=== PATIENT | male | born 1970 | race Caucasian/White ===

== ENCOUNTER 2021-01-21 10:59 | Inpatient (IN) | payer OTHER ==
[2021-01-21] MEDS ORDERED: ACETAMINOPHEN 325 MG TABLET (FP) PO PRN ×2 (12:22)
[2021-01-21] MEDS ORDERED: NICOTINE 10 MG CARTRIDGE (INHALER) IH PRN (12:22)
[2021-01-21] MEDS ORDERED: BISMUTH SUBSALICYLATE 524 MG/30 ML PO PRN (12:22)
[2021-01-21] MEDS ORDERED: cloNIDine HCL 0.1 MG TABLET PO PRN (12:22)
[2021-01-21] MEDS ORDERED: MAGNESIUM CITRATE 300 ML BOTTLE PO PRN (12:22)
[2021-01-21] MEDS ORDERED: MAGNESIUM HYDROX 2400MG/30ML ORAL SUSPENSION 30 ML CUP PO PRN (12:22)
[2021-01-21] MEDS ORDERED: ONDANSETRON *ODT* 4 MG TABLET SL PRN (12:22)
[2021-01-21] MEDS ORDERED: MAG HYDROX/AL HYDROX/SIMETH 30 ML UNIT-DOSE CUP PO PRN (12:22)
[2021-01-21] MEDS ORDERED: IBUPROFEN 400 MG TABLET (FP) PO PRN (12:22)
[2021-01-21] MEDS ORDERED: MENTHOL/PHENOL 1 EACH UD MM PRN (12:22)
[2021-01-21 12:34] VITALS: BMI 22.8
[2021-01-21] MEDS ORDERED: methaDONE HCL 10 MG TABLET (FOR DETOX USE ONLY) PO ONE (14:00)
[2021-01-21] MEDS: NICOTINE 14 MG/24 HOURS TOPICAL PATCH TD SCH (15:27)
[2021-01-21] MEDS: hydrOXYzine PAMOATE 25 MG CAPSULE (FP) PO SCH ×3 (15:30→22:23)
[2021-01-21] MEDS: PRENATAL VITAMINS W/ FOLIC ACID TABLET (FP) PO SCH (15:30)
[2021-01-21 17:05] LABS: HEMATOCRIT 38.1 % (35.4-49); HEMOGLOBIN 12.9 GM/dL (11.7-16.9); MCH 29.7 pg (25.7-33.7); MCHC 33.9 g/dl (32.0-35.9); MEAN CELL VOLUME 87.4 fl (80-96); MEAN PLT VOLUME 10.6 fl (7.5-11.1); PLATELET COUNT 178 10^3/uL (134-434); RBC 4.36 M/mm3 (4.00-5.60); RDW 15.1 % (11.9-15.9)
[2021-01-21 17:09] LABS: CALCIUM 9.2 mg/dL (8.5-10.1)
[2021-01-21 17:10] LABS: ALBUMIN 3.9 g/dl (3.4-5.0); BLOOD UREA NITROGEN 13.2 mg/dL (7-18)
[2021-01-21 17:13] LABS: CREATININE 1.1 mg/dL (0.55-1.3)
[2021-01-21 17:14] LABS: BILIRUBIN,TOTAL 0.4 mg/dL (0.2-1)
[2021-01-21 17:15] LABS: TOT PROT 6.7 g/dl (6.4-8.2)
[2021-01-21] MEDS: METHOCARBAMOL 500 MG TABLET PO PRN (18:14)
[2021-01-21] MEDS: MELATONIN 5 MG TABLETS PO SCH (22:23)
[2021-01-21] MEDS: THIAMINE HCL 100 MG TABLET (FP) PO SCH (22:23)
[2021-01-22] MEDS: hydrOXYzine PAMOATE 25 MG CAPSULE (FP) PO SCH ×5 (06:28→22:15)
[2021-01-22] MEDS: METHOCARBAMOL 500 MG TABLET PO PRN (07:57)
[2021-01-22] MEDS ORDERED: methaDONE HCL 10 MG TABLET (FOR DETOX USE ONLY) ONE (09:49)
[2021-01-22] MEDS: PRENATAL VITAMINS W/ FOLIC ACID TABLET (FP) PO SCH (10:09)
[2021-01-22] MEDS: NICOTINE 14 MG/24 HOURS TOPICAL PATCH TD SCH (10:11)
[2021-01-22] MEDS: diazePAM 5 MG TABLET PO SCH ×2 (18:14→22:16)
[2021-01-22] MEDS: MELATONIN 5 MG TABLETS PO SCH (22:16)
[2021-01-22] MEDS: THIAMINE HCL 100 MG TABLET (FP) PO SCH (22:16)
[2021-01-23] MEDS: diazePAM 5 MG TABLET PO SCH ×5 (06:47→22:25)
[2021-01-23] MEDS: hydrOXYzine PAMOATE 25 MG CAPSULE (FP) PO SCH ×6 (06:47→22:25)
[2021-01-23] MEDS ORDERED: methaDONE HCL 10 MG TABLET (FOR DETOX USE ONLY) PO ONE (10:00)
[2021-01-23] MEDS: METHOCARBAMOL 500 MG TABLET PO PRN ×2 (10:08→17:42)
[2021-01-23] MEDS: PRENATAL VITAMINS W/ FOLIC ACID TABLET (FP) PO SCH (10:09)
[2021-01-23] MEDS: NICOTINE 14 MG/24 HOURS TOPICAL PATCH TD SCH (10:09)
[2021-01-23] MEDS: diazePAM 5 MG TABLET PO PRN (15:42)
[2021-01-23] MEDS: MELATONIN 5 MG TABLETS PO SCH (22:24)
[2021-01-23] MEDS: THIAMINE HCL 100 MG TABLET (FP) PO SCH (22:25)
[2021-01-24] MEDS ORDERED: diazePAM 5 MG TABLET PO SCH (06:00)
[2021-01-24] MEDS: hydrOXYzine PAMOATE 25 MG CAPSULE (FP) PO SCH ×2 (06:39→09:13)
[2021-01-24] MEDS ORDERED: methaDONE HCL 10 MG TABLET (FOR DETOX USE ONLY) ONE (09:09)
[2021-01-24] MEDS: NICOTINE 14 MG/24 HOURS TOPICAL PATCH TD SCH (09:12)
[2021-01-24] MEDS: PRENATAL VITAMINS W/ FOLIC ACID TABLET (FP) PO SCH (09:12)
[2021-01-24] MEDS: METHOCARBAMOL 500 MG TABLET PO PRN (09:12)
[2021-01-24] MEDS: diazePAM 5 MG TABLET PO PRN (09:13)
[2021-01-24 09:29] VITALS: BP 125/77; PULSE 56; TEMP 97.5
[2021-01-25] MEDS ORDERED: diazePAM 5 MG TABLET PO SCH (06:00)
[2021-01-25] MEDS ORDERED: methaDONE HCL 10 MG TABLET (FOR DETOX USE ONLY) PO ONE (10:00)
[2021-01-26] MEDS ORDERED: diazePAM 5 MG TABLET PO ONE (06:00)
== END 2021-01-24 10:38 | disposition left against medical advice (07) | DRG 770 ==
LOC: YASAS 10:59 → Y3N 12:59
PROVIDERS: ADMIT Allergy & Immunology; ATTEND Allergy & Immunology
PROC: HZ2ZZZZ Detoxification Services for Substance Abuse Treatment (ICD-10-PCS; principal; 2021-01-21)
DX: F11.23 Opioid dependence with withdrawal (principal); F10.230 Alcohol dependence with withdrawal, uncomplicated; F14.20 Cocaine dependence, uncomplicated; F12.20 Cannabis dependence, uncomplicated; F17.210 Nicotine dependence, cigarettes, uncomplicated
CPT/HCPCS: 36415; 80053; 82947; 85027; 86780; 93005; 93010; C9803; J0735; U0003; U0005